=== PATIENT | female | born 1950 | race Asian ===

== ENCOUNTER → 2016-08-13 | Outpatient (CLI) | payer MEDICARE, MEDICAID ==
[~2016-08-13] VITALS: Ht 149.9 cm; Wt 65.0 kg
[~2016-08-13] MED LIST: ACET-784 PO; ASPI-1061 PO; BENZ-26 PO; CANA100T PO; DSS100 PO; GABA-529 PO; LOSA50TA37 PO; METF500T4 PO; PRAV40 PO; TRAM50TA4 PO
[2016-08-13 12:35] VITALS: BP 133/62
== END | disposition home or self-care (01) ==
LOC: SRCNTR 12:30
PROVIDERS: ATTEND Internal Medicine Critical Care Medicine
DX: I10 Essential (primary) hypertension (principal); E78.2 Mixed hyperlipidemia; E11.9 Type 2 diabetes mellitus without complications; C34.90 Malignant neoplasm of unspecified part of unspecified bronchus or lung; Z72.0 Tobacco use
CPT/HCPCS: G0463

== ENCOUNTER → 2017-02-04 | Outpatient (CLI) | payer OTHER, MEDICAID ==
[~2017-02-04] MED LIST changes: -ASPI-1061 PO; -BENZ-26 PO; +BENZ-51 PO; -GABA-529 PO; +ONDA4 PO; -PRAV40 PO; +PRAV40TA4 PO; +TIOT4MIS2 IH; -TRAM50TA4 PO; +[UNRECOGNIZED DRUG - OTHER] PO
== END | disposition home or self-care (01) ==
LOC: RADPV 10:13
PROVIDERS: ATTEND Internal Medicine
DX: M79.89 Other specified soft tissue disorders (principal)

== ENCOUNTER 2019-01-03 12:30 | Inpatient (IN) | payer MEDICARE, MEDICAID ==
[~2019-01-03] VITALS: Ht 152.4 cm; Wt 62.7 kg
[~2019-01-03 12:30] MED LIST changes: -LOSA50TA37 PO; +LOSA50TA64 PO; +METF-960 PO; -METF500T4 PO
[2019-01-03 13:21] LABS: GLUCOSE,POINT OF CARE 144 MG/DL (70-110)
[2019-01-03] MEDS ORDERED: MORPHINE SULFATE 2 MG/ML SYRINGE IVP ONE (13:30)
[2019-01-03] MEDS ORDERED: SODIUM CHLORIDE 0.9% 1,000 ML IV ONE (13:30)
[2019-01-03] MEDS ORDERED: ONDANSETRON HCL 4 MG/2 ML VIAL IVP ONE (13:30)
[2019-01-03 13:47] LABS: BASOPHILS % (AUTO) 0.5 % (0.0-2.0); EOSINOPHILS % (AUTO) 1.5 % (1.0-6.0); HEMATOCRIT 41.3 % (36-46); HEMOGLOBIN 13.9 g/dL (12.0-16.0); LYMPHOCYTES # (AUTO) 0.9 K/uL (1.0-4.8); LYMPHOCYTES % (AUTO) 16.2 % (22.0-44.0); MEAN CORPUSCULAR HEMOGLOBIN 30.8 pg (26.0-34.0); MEAN CORPUSCULAR HGB CONC 33.7 G/dL (31.0-37.0); MEAN CORPUSCULAR VOLUME 92 fL (80-100); MONOCYTES # (AUTO) 0.4 K/uL (0.1-1.0); MONOCYTES % (AUTO) 7.5 % (2.0-9.0); NEUTROPHILS # (AUTO) 4.1 K/uL (1.8-7.7); NEUTROPHILS % (AUTO) 74.3 % (40.0-70.0); PLATELET COUNT (AUTO) 211 K/uL (150-450); RED BLOOD CELL COUNT(AUTO) 4.51 MIL/uL (4.00-5.20); RED CELL DISTRIBUTION WIDTH 14.4 % (11.5-14.5)
[2019-01-03 14:31] LABS: ALBUMIN 4.3 g/dL (3.4-5.0); BILIRUBIN,TOTAL 0.6 mg/dL (0.1-1.0); CALCIUM, TOTAL 10.3 mg/dL (8.8-10.5); CREATININE 0.96 mg/dL (0.60-1.30); POTASSIUM 3.8 mmol/L (3.5-5.1); TOTAL PROTEIN, SERUM 8.7 g/dL (6.4-8.2)
[2019-01-03] MEDS ORDERED: ONDANSETRON HCL 4 MG/2 ML VIAL IVP PRN ×2 (16:00→17:45)
[2019-01-03] MEDS ORDERED: ACETAMINOPHEN 325 MG TABLET PO PRN ×2 (16:00→17:45)
[2019-01-03] MEDS ORDERED: IPRATROPIUM BROMIDE 0.5 MG/2.5 ML NEB SOLUTION NEB PRN (17:45)
[2019-01-03] MEDS ORDERED: BISACODYL 10 MG RECTAL RECTAL SUPPOSITORY PR PRN (17:45)
[2019-01-03] MEDS ORDERED: ZOLPIDEM TARTRATE 5 MG TABLET PO PRN (17:45)
[2019-01-03] MEDS ORDERED: ALBUTEROL SULFATE 2.5 MG/0.5 ML NEB SOLUTION NEB PRN (17:45)
[2019-01-03] MEDS ORDERED: BENZONATATE 100 MG CAPSULE PO PRN (17:45)
[2019-01-03] MEDS ORDERED: MAGNESIUM HYDROXIDE SUSPENSION 30 ML UDCUP PO PRN (17:45)
[2019-01-03] MEDS: SODIUM CHLORIDE 0.9% 1,000 ML IV SCH (18:12)
[2019-01-03 18:48] VITALS: BP 149/79
[2019-01-03] MEDS: BENZONATATE 100 MG CAPSULE PO SCH (20:02)
[2019-01-03] MEDS: DOCUSATE SODIUM 100 MG CAPSULE PO SCH (20:03)
[2019-01-03] MEDS: HEPARIN SODIUM,PORCINE 5,000 UNITS/ML VIAL SQ SCH (20:03)
[2019-01-03 20:36] LABS: GLUCOMETER DEV NAME(LOC) 6N.2; GLUCOSE,POINT OF CARE 187 MG/DL (70-110)
[2019-01-03] MEDS ORDERED: MORPHINE SULFATE 2 MG/ML SYRINGE IVP PRN (20:45)
[2019-01-03 20:50] VITALS: BP 147/74
[2019-01-03] MEDS: BUDESONIDE 0.5 MG/2 ML NEB SOLUTION NEB SCH (21:00)
[2019-01-03] MEDS ORDERED: IOVERSOL 320 MG/ML 100 ML VIAL ONE (21:28)
[2019-01-03] MEDS ORDERED: SODIUM CHLORIDE 0.9% 100 ML ONE (21:28)
[2019-01-03] MEDS: MORPHINE SULFATE 2 MG/ML SYRINGE IVP PRN (22:02)
[2019-01-03 23:37] VITALS: BP 129/62
[2019-01-04] MEDS: BENZONATATE 100 MG CAPSULE PO SCH ×4 (00:44→23:52)
[2019-01-04] MEDS ORDERED: OSIM80TA PO (02:24)
[2019-01-04] MEDS ORDERED: SERT25TA PO (02:28)
[2019-01-04] MEDS ORDERED: LEVO50TA4 PO (02:29)
[2019-01-04] MEDS ORDERED: HYDR-4065 PO (02:34)
[2019-01-04 04:38] VITALS: BP 141/69
[2019-01-04] MEDS: MORPHINE SULFATE 2 MG/ML SYRINGE IVP PRN ×3 (04:41→20:07)
[2019-01-04 05:52] LABS: GLUCOMETER DEV NAME(LOC) 6N.2; GLUCOSE,POINT OF CARE 100 MG/DL (70-110)
[2019-01-04 06:33] LABS: BASOPHILS % (AUTO) 0.9 % (0.0-2.0); EOSINOPHILS % (AUTO) 3.3 % (1.0-6.0); HEMATOCRIT 35.5 % (36-46); HEMOGLOBIN 12.2 g/dL (12.0-16.0); LYMPHOCYTES # (AUTO) 0.6 K/uL (1.0-4.8); LYMPHOCYTES % (AUTO) 19.7 % (22.0-44.0); MEAN CORPUSCULAR HEMOGLOBIN 31.4 pg (26.0-34.0); MEAN CORPUSCULAR HGB CONC 34.4 G/dL (31.0-37.0); MEAN CORPUSCULAR VOLUME 91 fL (80-100); MONOCYTES # (AUTO) 0.3 K/uL (0.1-1.0); MONOCYTES % (AUTO) 9.3 % (2.0-9.0); NEUTROPHILS # (AUTO) 2.1 K/uL (1.8-7.7); NEUTROPHILS % (AUTO) 66.8 % (40.0-70.0); PLATELET COUNT (AUTO) 159 K/uL (150-450); RED BLOOD CELL COUNT(AUTO) 3.89 MIL/uL (4.00-5.20); RED CELL DISTRIBUTION WIDTH 14.1 % (11.5-14.5)
[2019-01-04 06:49] LABS: HEMOGLOBIN A1C 5.6 % (4.5-6.2)
[2019-01-04 07:34] LABS: AMYLASE 95 U/L (25-115); ANION GAP 7 mmol/L (8-16); CALCIUM, TOTAL 9.1 mg/dL (8.8-10.5); CARBON DIOXIDE 27 mmol/L (22-29); CHLORIDE 101 mmol/L (98-107); CHOL/HDL RATIO 2.5 (3.9-5.7); CHOLESTEROL 123 mg/dL (131-200); CREATINE KINASE, TOTAL ONLY 136 U/L (26-192); CREATININE 0.67 mg/dL (0.60-1.30); FREE T4 (FREE THYROXINE) 1.48 ng/dL (0.76-1.46); GLOMERULAR FILTR. RATE CALC > 60 mL/min (>60); GLUCOSE,RANDOM 110 mg/dL (70-110); HDL CHOLESTEROL 50 mg/dL (40-60); LDL CHOL (CALC.) 45 mg/dL (0-130); LIPASE 271 U/L (73-393); POTASSIUM 4.2 mmol/L (3.5-5.1); SODIUM SERUM 135 mmol/L (136-145); THYROID STIMULATING HORMONE 3.35 uIU/mL (0.36-3.74); TRIGLYCERIDES 138 mg/dL (15-150); UREA NITROGEN, BLOOD 8 mg/dL (7-18)
[2019-01-04 08:09] VITALS: BP 152/74
[2019-01-04] MEDS: PANTOPRAZOLE SODIUM 40 MG DR TABLET PO SCH (08:23)
[2019-01-04] MEDS: HEPARIN SODIUM,PORCINE 5,000 UNITS/ML VIAL SQ SCH ×2 (08:24→20:07)
[2019-01-04] MEDS: DOCUSATE SODIUM 100 MG CAPSULE PO SCH ×2 (08:25→20:06)
[2019-01-04] MEDS: SERTRALINE HCL 50 MG TABLET PO SCH (09:16)
[2019-01-04] MEDS: TIOTROPIUM BROMIDE 18 MCG/INH HANDIHALER [5] IH SCH (09:17)
[2019-01-04 11:42] VITALS: BP 128/68
[2019-01-04] MEDS ORDERED: MAGNESIUM SULFATE 4 GM/WATER 100 ML IV PRN (12:00)
[2019-01-04] MEDS ORDERED: MAGNESIUM OXIDE 400 MG TABLET PO PRN (12:00)
[2019-01-04] MEDS ORDERED: PRAV20TA4 PO (12:08)
[2019-01-04] MEDS ORDERED: DOCU-275 PO (12:08)
[2019-01-04 12:16] LABS: ALBUMIN 3.8 g/dL (3.4-5.0)
[2019-01-04 12:31] LABS: GLUCOMETER DEV NAME(LOC) 4E.2; GLUCOSE,POINT OF CARE 97 MG/DL (70-110)
[2019-01-04] MEDS: MAGNESIUM SULFATE 2 GM/WATER 50 ML IV PRN (13:20)
[2019-01-04 15:45] VITALS: BP 129/55
[2019-01-04] MEDS: SODIUM CHLORIDE 0.9% 1,000 ML IV SCH (16:36)
[2019-01-04 17:36] LABS: GLUCOMETER DEV NAME(LOC) 4E.2; GLUCOSE,POINT OF CARE 133 MG/DL (70-110)
[2019-01-04 19:34] VITALS: BP 142/64
[2019-01-04] MEDS: LOSARTAN POTASSIUM 50 MG TABLET PO SCH (20:06)
[2019-01-04 23:50] VITALS: BP 140/72
[2019-01-05 04:37] VITALS: BP 120/66
[2019-01-05] MEDS: MORPHINE SULFATE 2 MG/ML SYRINGE IVP PRN ×4 (05:31→23:36)
[2019-01-05] MEDS: LEVOTHYROXINE SODIUM 50 MCG TABLET PO SCH (05:31)
[2019-01-05] MEDS: SODIUM CHLORIDE 0.9% 1,000 ML IV SCH ×2 (05:31→23:41)
[2019-01-05 08:05] LABS: BASOPHILS % (AUTO) 0.6 % (0.0-2.0); EOSINOPHILS % (AUTO) 3.1 % (1.0-6.0); HEMATOCRIT 34.2 % (36-46); HEMOGLOBIN 11.8 g/dL (12.0-16.0); LYMPHOCYTES # (AUTO) 0.6 K/uL (1.0-4.8); LYMPHOCYTES % (AUTO) 19.2 % (22.0-44.0); MEAN CORPUSCULAR HEMOGLOBIN 31.2 pg (26.0-34.0); MEAN CORPUSCULAR HGB CONC 34.3 G/dL (31.0-37.0); MEAN CORPUSCULAR VOLUME 91 fL (80-100); MONOCYTES # (AUTO) 0.3 K/uL (0.1-1.0); MONOCYTES % (AUTO) 9.2 % (2.0-9.0); NEUTROPHILS % (AUTO) 67.9 % (40.0-70.0); PLATELET COUNT (AUTO) 156 K/uL (150-450); RED BLOOD CELL COUNT(AUTO) 3.77 MIL/uL (4.00-5.20); RED CELL DISTRIBUTION WIDTH 14.1 % (11.5-14.5)
[2019-01-05 08:08] VITALS: BP 124/56
[2019-01-05] MEDS: BENZONATATE 100 MG CAPSULE PO SCH ×3 (08:09→23:35)
[2019-01-05] MEDS: PANTOPRAZOLE SODIUM 40 MG DR TABLET PO SCH (08:09)
[2019-01-05] MEDS: SERTRALINE HCL 50 MG TABLET PO SCH (08:10)
[2019-01-05] MEDS: TIOTROPIUM BROMIDE 18 MCG/INH HANDIHALER [5] IH SCH (08:12)
[2019-01-05] MEDS: HEPARIN SODIUM,PORCINE 5,000 UNITS/ML VIAL SQ SCH ×2 (08:13→20:01)
[2019-01-05 08:16] LABS: ANION GAP 9 mmol/L (8-16); CALCIUM, TOTAL 8.9 mg/dL (8.8-10.5); CARBON DIOXIDE 25 mmol/L (22-29); CHLORIDE 101 mmol/L (98-107); CREATININE 0.64 mg/dL (0.60-1.30); GLOMERULAR FILTR. RATE CALC > 60 mL/min (>60); GLUCOSE,RANDOM 112 mg/dL (70-110); POTASSIUM 4.3 mmol/L (3.5-5.1); SODIUM SERUM 135 mmol/L (136-145); UREA NITROGEN, BLOOD 7 mg/dL (7-18)
[2019-01-05] MEDS: DOCUSATE SODIUM 100 MG CAPSULE PO SCH ×2 (09:00→20:01)
[2019-01-05] MEDS: MAGNESIUM SULFATE 2 GM/WATER 50 ML IV PRN (11:40)
[2019-01-05 13:10] VITALS: BP 138/66
[2019-01-05 16:02] VITALS: BP 128/63
[2019-01-05] MEDS: HYDROCODONE/ACETAMINOPHEN 5-325 MG TABLET PO PRN (18:49)
[2019-01-05] MEDS: LOSARTAN POTASSIUM 50 MG TABLET PO SCH (20:00)
[2019-01-05] MEDS: MIRTAZAPINE 15 MG TABLET PO SCH (20:01)
[2019-01-05] MEDS: BUDESONIDE 0.5 MG/2 ML NEB SOLUTION NEB SCH (20:31)
[2019-01-05 20:44] VITALS: BP 131/67
[2019-01-05 23:30] VITALS: BP 131/60
[2019-01-06 04:00] VITALS: BP 132/63
[2019-01-06 05:50] LABS: EOSINOPHILS % (AUTO) 4.9 % (1.0-6.0); HEMOGLOBIN 11.3 g/dL (12.0-16.0); LYMPHOCYTES # (AUTO) 0.8 K/uL (1.0-4.8); LYMPHOCYTES % (AUTO) 29.8 % (22.0-44.0); MEAN CORPUSCULAR HEMOGLOBIN 31.1 pg (26.0-34.0); MEAN CORPUSCULAR HGB CONC 34.2 G/dL (31.0-37.0); MEAN CORPUSCULAR VOLUME 91 fL (80-100); MONOCYTES # (AUTO) 0.3 K/uL (0.1-1.0); MONOCYTES % (AUTO) 10.3 % (2.0-9.0); NEUTROPHILS # (AUTO) 1.4 K/uL (1.8-7.7); PLATELET COUNT (AUTO) 142 K/uL (150-450); RED BLOOD CELL COUNT(AUTO) 3.63 MIL/uL (4.00-5.20); RED CELL DISTRIBUTION WIDTH 14.1 % (11.5-14.5)
[2019-01-06 06:02] LABS: ANION GAP 6 mmol/L (8-16); CALCIUM, TOTAL 8.7 mg/dL (8.8-10.5); CARBON DIOXIDE 30 mmol/L (22-29); CHLORIDE 101 mmol/L (98-107); CREATININE 0.68 mg/dL (0.60-1.30); GLOMERULAR FILTR. RATE CALC > 60 mL/min (>60); GLUCOSE,RANDOM 98 mg/dL (70-110); POTASSIUM 4.3 mmol/L (3.5-5.1); SODIUM SERUM 137 mmol/L (136-145); UREA NITROGEN, BLOOD 7 mg/dL (7-18)
[2019-01-06] MEDS: LEVOTHYROXINE SODIUM 50 MCG TABLET PO SCH (06:10)
[2019-01-06 07:31] VITALS: BP 138/57
[2019-01-06] MEDS: BUDESONIDE 0.5 MG/2 ML NEB SOLUTION NEB SCH ×2 (08:38→21:19)
[2019-01-06] MEDS: HEPARIN SODIUM,PORCINE 5,000 UNITS/ML VIAL SQ SCH ×2 (09:42→20:15)
[2019-01-06] MEDS: PANTOPRAZOLE SODIUM 40 MG DR TABLET PO SCH (09:43)
[2019-01-06] MEDS: SERTRALINE HCL 50 MG TABLET PO SCH (09:43)
[2019-01-06] MEDS: BENZONATATE 100 MG CAPSULE PO SCH ×2 (09:43→17:52)
[2019-01-06] MEDS: TIOTROPIUM BROMIDE 18 MCG/INH HANDIHALER [5] IH SCH (09:43)
[2019-01-06] MEDS: DOCUSATE SODIUM 100 MG CAPSULE PO SCH ×2 (09:50→20:15)
[2019-01-06] MEDS: MORPHINE SULFATE 2 MG/ML SYRINGE IVP PRN ×2 (10:43→17:52)
[2019-01-06 11:29] VITALS: BP 149/71
[2019-01-06] MEDS: SODIUM CHLORIDE 0.9% 1,000 ML IV SCH (12:08)
[2019-01-06] MEDS: HYDROCODONE/ACETAMINOPHEN 5-325 MG TABLET PO PRN ×2 (14:30→22:25)
[2019-01-06 15:56] VITALS: BP 142/79
[2019-01-06] MEDS ORDERED: MORPHINE SULFATE 15 MG ER TABLET PO ONE (17:30)
[2019-01-06 19:47] VITALS: BP 130/56
[2019-01-06] MEDS: LOSARTAN POTASSIUM 50 MG TABLET PO SCH (20:15)
[2019-01-06] MEDS: MORPHINE SULFATE 15 MG ER TABLET PO SCH (20:15)
[2019-01-06] MEDS: MIRTAZAPINE 15 MG TABLET PO SCH (20:15)
[2019-01-06 23:20] VITALS: BP 129/52
[2019-01-07] MEDS: BENZONATATE 100 MG CAPSULE PO SCH ×3 (00:28→16:06)
[2019-01-07] MEDS: MORPHINE SULFATE 2 MG/ML SYRINGE IVP PRN ×3 (00:28→20:58)
[2019-01-07] MEDS: SODIUM CHLORIDE 0.9% 1,000 ML IV SCH ×2 (02:06→16:13)
[2019-01-07] MEDS ORDERED: INFLUENZA VIRUS VACCINE QVS 2019-20 (3YR+)/PF 60 MCG/0.5 ML SYRINGE IM ONE (03:30)
[2019-01-07 04:00] VITALS: BP 118/69
[2019-01-07] MEDS: LEVOTHYROXINE SODIUM 50 MCG TABLET PO SCH (05:45)
[2019-01-07] MEDS: HYDROCODONE/ACETAMINOPHEN 5-325 MG TABLET PO PRN ×2 (05:45→16:08)
[2019-01-07 08:02] VITALS: BP 125/78
[2019-01-07] MEDS: TIOTROPIUM BROMIDE 18 MCG/INH HANDIHALER [5] IH SCH (08:23)
[2019-01-07] MEDS: PANTOPRAZOLE SODIUM 40 MG DR TABLET PO SCH (08:24)
[2019-01-07] MEDS: DOCUSATE SODIUM 100 MG CAPSULE PO SCH ×2 (08:25→20:10)
[2019-01-07] MEDS: SERTRALINE HCL 50 MG TABLET PO SCH (08:25)
[2019-01-07] MEDS: MORPHINE SULFATE 15 MG ER TABLET PO SCH ×2 (08:25→20:11)
[2019-01-07] MEDS: HEPARIN SODIUM,PORCINE 5,000 UNITS/ML VIAL SQ SCH ×2 (08:25→20:11)
[2019-01-07] MEDS: BUDESONIDE 0.5 MG/2 ML NEB SOLUTION NEB SCH ×2 (08:49→20:24)
[2019-01-07 15:50] VITALS: BP 142/67
[2019-01-07] MEDS: MIRTAZAPINE 15 MG TABLET PO SCH (20:11)
[2019-01-07] MEDS: LOSARTAN POTASSIUM 50 MG TABLET PO SCH (20:11)
[2019-01-07 20:17] VITALS: BP 163/70
[2019-01-07 23:41] VITALS: BP 132/60
[2019-01-08] MEDS: BENZONATATE 100 MG CAPSULE PO SCH ×4 (00:10→23:47)
[2019-01-08] MEDS: HYDROCODONE/ACETAMINOPHEN 5-325 MG TABLET PO PRN ×2 (00:10→11:53)
[2019-01-08 05:39] VITALS: BP 139/63
[2019-01-08] MEDS: LEVOTHYROXINE SODIUM 50 MCG TABLET PO SCH (05:54)
[2019-01-08] MEDS: SODIUM CHLORIDE 0.9% 1,000 ML IV SCH ×2 (05:54→12:09)
[2019-01-08 07:20] VITALS: BP 137/70
[2019-01-08] MEDS: TIOTROPIUM BROMIDE 18 MCG/INH HANDIHALER [5] IH SCH (08:32)
[2019-01-08] MEDS: SERTRALINE HCL 50 MG TABLET PO SCH (08:33)
[2019-01-08] MEDS: PANTOPRAZOLE SODIUM 40 MG DR TABLET PO SCH (08:33)
[2019-01-08] MEDS: DOCUSATE SODIUM 100 MG CAPSULE PO SCH ×2 (08:34→20:10)
[2019-01-08] MEDS: HEPARIN SODIUM,PORCINE 5,000 UNITS/ML VIAL SQ SCH ×2 (08:35→20:11)
[2019-01-08] MEDS: MORPHINE SULFATE 30 MG ER TABLET PO SCH (09:40)
[2019-01-08] MEDS: BUDESONIDE 0.5 MG/2 ML NEB SOLUTION NEB SCH ×2 (10:01→19:56)
[2019-01-08 11:10] VITALS: BP 138/79
[2019-01-08] MEDS ORDERED: ONDANSETRON HCL 4 MG TABLET PO PRN (12:15)
[2019-01-08 15:12] VITALS: BP 145/74
[2019-01-08 15:15] VITALS: BP_SYST 145; BP_SYST 148; BP_DIAS 75
[2019-01-08 20:00] VITALS: BP 145/65
[2019-01-08] MEDS: LOSARTAN POTASSIUM 50 MG TABLET PO SCH (20:10)
[2019-01-08] MEDS: MIRTAZAPINE 15 MG TABLET PO SCH (20:10)
[2019-01-08] MEDS: MORPHINE SULFATE 15 MG ER TABLET PO SCH (20:11)
[2019-01-08] MEDS: MORPHINE SULFATE 2 MG/ML SYRINGE IVP PRN (22:05)
[2019-01-09 00:13] VITALS: BP 137/61
[2019-01-09 04:00] VITALS: BP 147/68
[2019-01-09] MEDS: HYDROCODONE/ACETAMINOPHEN 5-325 MG TABLET PO PRN ×2 (05:53→18:07)
[2019-01-09] MEDS: LEVOTHYROXINE SODIUM 50 MCG TABLET PO SCH (05:53)
[2019-01-09 07:58] VITALS: BP 147/60
[2019-01-09] MEDS: HEPARIN SODIUM,PORCINE 5,000 UNITS/ML VIAL SQ SCH ×2 (08:14→20:15)
[2019-01-09] MEDS: PANTOPRAZOLE SODIUM 40 MG DR TABLET PO SCH (08:15)
[2019-01-09] MEDS: BENZONATATE 100 MG CAPSULE PO SCH ×3 (08:15→23:53)
[2019-01-09] MEDS: DOCUSATE SODIUM 100 MG CAPSULE PO SCH ×2 (08:17→20:15)
[2019-01-09] MEDS: SERTRALINE HCL 50 MG TABLET PO SCH (08:18)
[2019-01-09] MEDS: BUDESONIDE 0.5 MG/2 ML NEB SOLUTION NEB SCH ×2 (08:48→21:01)
[2019-01-09] MEDS: MORPHINE SULFATE 30 MG ER TABLET PO SCH (10:30)
[2019-01-09] MEDS: TIOTROPIUM BROMIDE 18 MCG/INH HANDIHALER [5] IH SCH (10:31)
[2019-01-09 12:36] VITALS: BP 145/68
[2019-01-09 17:07] VITALS: BP 143/72
[2019-01-09] MEDS: SODIUM CHLORIDE 0.9% 1,000 ML IV SCH (18:10)
[2019-01-09] MEDS: MIRTAZAPINE 15 MG TABLET PO SCH (20:15)
[2019-01-09] MEDS: MORPHINE SULFATE 15 MG ER TABLET PO SCH (20:15)
[2019-01-09] MEDS: LOSARTAN POTASSIUM 50 MG TABLET PO SCH (20:15)
[2019-01-09 21:18] VITALS: BP 141/72
[2019-01-09] MEDS: MORPHINE SULFATE 2 MG/ML SYRINGE IVP PRN (21:22)
[2019-01-10 00:47] VITALS: BP 138/64
[2019-01-10] MEDS: LEVOTHYROXINE SODIUM 50 MCG TABLET PO SCH (05:51)
[2019-01-10] MEDS: HYDROCODONE/ACETAMINOPHEN 5-325 MG TABLET PO PRN (05:51)
[2019-01-10] MEDS: SODIUM CHLORIDE 0.9% 1,000 ML IV SCH ×2 (05:51→07:03)
[2019-01-10 06:16] VITALS: BP 140/59
[2019-01-10 07:40] VITALS: BP 132/57
[2019-01-10] MEDS: BUDESONIDE 0.5 MG/2 ML NEB SOLUTION NEB SCH (08:24)
[2019-01-10] MEDS: BENZONATATE 100 MG CAPSULE PO SCH (09:00)
[2019-01-10] MEDS: TIOTROPIUM BROMIDE 18 MCG/INH HANDIHALER [5] IH SCH (09:00)
[2019-01-10] MEDS: HEPARIN SODIUM,PORCINE 5,000 UNITS/ML VIAL SQ SCH (09:01)
[2019-01-10] MEDS: DOCUSATE SODIUM 100 MG CAPSULE PO SCH (09:01)
[2019-01-10] MEDS: SERTRALINE HCL 50 MG TABLET PO SCH (09:01)
[2019-01-10] MEDS: PANTOPRAZOLE SODIUM 40 MG DR TABLET PO SCH (09:01)
[2019-01-10] MEDS: MORPHINE SULFATE 30 MG ER TABLET PO SCH (09:01)
[2019-01-10 11:43] VITALS: BP 149/66
== END 2019-01-10 16:16 | disposition home or self-care (01) | DRG 180 ==
LOC: EMS 12:31 → 4E 16:34 → 4S 01-04 13:42 → 4E 01-04 13:44
PROVIDERS: ADMIT Internal Medicine Geriatric Medicine; ATTEND Internal Medicine Geriatric Medicine
DX: C34.90 Malignant neoplasm of unspecified part of unspecified bronchus or lung (principal); D61.810 Antineoplastic chemotherapy induced pancytopenia; E87.1 Hypo-osmolality and hyponatremia; J44.1 Chronic obstructive pulmonary disease with (acute) exacerbation; E46 Unspecified protein-calorie malnutrition; E11.9 Type 2 diabetes mellitus without complications; F17.210 Nicotine dependence, cigarettes, uncomplicated; E78.00 Pure hypercholesterolemia, unspecified; I10 Essential (primary) hypertension; E78.5 Hyperlipidemia, unspecified; E86.0 Dehydration; R63.0 Anorexia; E83.42 Hypomagnesemia; R62.7 Adult failure to thrive; E03.9 Hypothyroidism, unspecified; Z68.27 Body mass index [BMI] 27.0-27.9, adult; Z82.49 Family history of ischemic heart disease and other diseases of the circulatory system
CPT/HCPCS: 71275; 82948; 83036; 83735; 84439; 84443; 90686; 93306; 94640; 96374; 96375; 96376; 99219; G0378; J1644; J2270; J2405; J3475; J7030; J7050; Q0162